=== PATIENT | female | born 1945 | race African-American/Black ===

== ENCOUNTER → 2017-09-26 | Outpatient (CLI) | payer MEDICARE, OTHER | END | disposition home or self-care (01) | LOC: KCIC CT 08:48 | DX: J45.909 Unspecified asthma, uncomplicated (principal); J43.2 Centrilobular emphysema; K44.9 Diaphragmatic hernia without obstruction or gangrene; I70.0 Atherosclerosis of aorta; Z87.891 Personal history of nicotine dependence | CPT/HCPCS: 71250 ==

== ENCOUNTER → 2017-10-16 | Outpatient (CLI) | payer MEDICARE, OTHER | END | disposition home or self-care (01) | LOC: PETSC 09:23 | DX: I70.0 Atherosclerosis of aorta (principal); K44.9 Diaphragmatic hernia without obstruction or gangrene | CPT/HCPCS: 78815; A9552 ==

== ENCOUNTER → 2018-05-01 | Outpatient (CLI) | payer MEDICARE, OTHER ==
[~2018-05-01] MED LIST: ALBU8.5H6 IH; ASPI-630 PO; BETH10TA PO; BUDE10.22 IH; CLOP75TA PO; CRESTOR5 MG PO; CYCL1DRO OP; EZET10TA18 PO; FEBU40TA PO; HYDR-2762 PO; LISI1TAB5 PO; METO-239 PO; OMEP20TA8 PO; PROAIR HFA8.5 GM IH; SAXA5TAB PO; SPIR25TA5 PO
--- NOTE | 2018-05-01 15:07 | KCIC ---
CT chest without contrast 05/01/2018 CLINICAL INDICATION: Pulmonary nodule follow-up. COMPARISON: CT chest 09/26/2017, PET/CT 10/26/2017 TECHNIQUE: Multiple CT images of the chest were obtained without contrast. *One or more of the following individualized dose reduction techniques were utilized for this examination: 1. Automated exposure control. 2. Adjustment of the mA and/or kV according to patient size. 3. Use of iterative reconstruction technique. FINDINGS: Heart size is normal without significant pericardial effusion. The thoracic aorta is normal in caliber with moderate calcified atheromatous disease. Three-vessel coronary artery calcifications are noted. No axillary, mediastinal or obvious hilar lymphadenopathy, though evaluation is limited in the absence of intravenous contrast. There is a stable posterior right upper lobe noncalcified nodule measuring 1.1 cm series 5/image 16. Stable linear perifissural noncalcified nodule in the left upper lobe measuring 0.5 cm series 5/image 25 and unchanged since 2006 and considered benign. Stable 0.3 cm noncalcified pulmonary nodule in the right middle lobe series 5/image 20 also stable since 2006 and considered benign. No new or enlarging noncalcified pulmonary nodules. Mild pulmonary emphysema. No pleural effusion or pneumothorax. There is a large hiatal hernia. Limited images of the upper abdomen: Bilateral renal hypodensities, likely cysts. IMPRESSION: 1. Stable right upper lobe 1.1 cm noncalcified pulmonary nodule since September 2017. Follow-up CT chest in 6 months is recommended. 2. Additional stable bilateral noncalcified pulmonary nodule since 2006, considered benign. 3. No new noncalcified pulmonary nodules. 4. Mild pulmonary emphysema. 5. Coronary artery calcifications. 6. Large hiatal hernia. Electronically signed by: Donell Maciel MD (05/01/2018 3:03 PM) [id number]
== END | disposition home or self-care (01) ==
LOC: KCIC CT 12:50
PROVIDERS: ATTEND Internal Medicine Pulmonary Disease
DX: J43.8 Other emphysema (principal); I25.10 Atherosclerotic heart disease of native coronary artery without angina pectoris; K44.9 Diaphragmatic hernia without obstruction or gangrene; R91.1 Solitary pulmonary nodule; G47.33 Obstructive sleep apnea (adult) (pediatric); E11.9 Type 2 diabetes mellitus without complications; Z87.891 Personal history of nicotine dependence; Z88.2 Allergy status to sulfonamides
CPT/HCPCS: 71250